=== PATIENT | female | born 1985 | race Caucasian/White ===

== ENCOUNTER 2024-09-09 18:23 | Emergency (ER) | payer OTHER, SELFPAY ==
--- OUTSIDE RECORDS SUMMARY | 2013-06-21 05:15 | XMS_ITS | Continuity of Care Document ---
Author Organization [facility] Address [address] [place] [address] Phone Care Team Providers Care Change House Attendant Name Role Phone Unavailable Unavailable Unavailable Advance Directives Directive Yes / No Effective Date File Name No Information Encounters Encounter Description Practice Location Reason(s) For Visit Diagnoses Date Provider Providers Copied on Encounter Pending Sale To [facility], [address], [place], [address], [place] tel:[phone] ALEXANDER BREVARD No Information 4 No Information Referring Provider: DANA Linares, [address] [facility] [place], [address]. tel:[phone] Family History Family Member Type Diagnosis Age At Onset No Information Payers Payer name Insurance type Covered constitution party ID Authoriza tifernando(s) [place] [employer] INDEMNITY [id number] Social History Type Description Quantity Date Captured Comments Sex Female Smoking Status No Information Chief Complaint And Reason For Visit No Information History Of Present Illness Encounter Date Complaint History Of Prese nt Illness No Information Instructions Date Instruction Additional Infor mation No Information Assessments Type Assessment Date No Information
--- OUTSIDE RECORDS SUMMARY | 2013-06-21 05:15 | XMS_ITS | Continuity of Care Document ---
Author Organization [facility] Address [address] [place] [address] Phone Care Team Providers Care Poultry Veterinarian Name Role Phone Unavailable Unavailable Unavailable Advance Directives Directive Yes / No Effective Date File Name No Information Encounters Encounter Description Practice Location Reason(s) For Visit Diagnoses Date Provider Providers Copied on Encounter [facility], [address], [place], [address], [place] tel:[phone] ALEXANDER BREVARD No Information 4 No Information Referring Provider: DANA Linares, [address] [facility] [place], [address]. tel:[phone] Family History Family Member Type Diagnosis Age At Onset No Information Payers Payer name Insurance type Covered constitution party ID Authoriza tifernando(s) [place] [employer] INDEMNITY 1478 [id number] Social History Type Description Quantity Date Captured Comments Sex Female Smoking Status No Information Chief Complaint And Reason For Visit No Information History Of Present Illness Encounter Date Complaint History Of Prese nt Illness No Information Instructions Date Instruction Additional Infor mation No Information Assessments Type Assessment Date No Information
[2024-09-09 18:46] VITALS: BP 147/92; PULSE 73; RESP 18; TEMP 36.9; O2SAT 98; BMI 28.7
--- NOTE | 2024-09-09 18:54 | ED.GENADULT ---
HPI - General Adult General Date Seen: 09/09/24 Chief complaint: Headache/Migraine Stated complaint: Migraine, nerve pain, possible shingles Time Seen by Provider: 09/09/24 18:50 History of Present Illness HPI narrative: 38 yo F with a history migraine headaches who presents to the ER today with concern for a painful burning rash affecting the right posterior thorax and back of her right shoulder blade that is been present initially for about a week. She 1st noticed a small spot there as a single spot last which she thought might have been a bug bite initially. Since then multiple other spots have spread and she is also feeling like she has got ?a flame? on her back. Along with that she has several as symptoms P she has for funny tingling burning nerve pain in both of her legs. No rashes there. She has also had headache that was present several days ago and then went away and then came back in. In particular the headache is affecting the left have her head. She says it feels like someone francisco a line down the center of her head and through the center of her nose and all the pain is on the left side of that. She has not had any fever or chills. Related Data Previous Rx's ?Medication ?Instructions ?Recorded valacyclovir 1 gram tablet 1,000 mg PO TID #21 tabs 09/09/24 Allergies Allergy/AdvReac Type Severity Reaction Status Date / Time Gadolinium-Containing Allergy Severe Anaphylaxis Verified 09/09/24 18:50 Contrast Medi nifedipine (From Procardia) Allergy Mild Hives Verified 09/09/24 18:50 PFSH PFSH Social History Non-prescribed substance use: denies use Exam Narrative: Exam Narrative: Constitutional: Appears well-developed and well-nourished. Alert. Conversant. Non toxic. HENT: Head: Atraumatic. No depressed skull fracture, Raccoon Eyes, Grove's sign, or hemotympanum. Face normal. TMs normal Nose: Nose normal. Mouth/Throat: Oral mucosa is clear and moist. no trismus. Pharynx normal. Tonsils symmetric. No tonsillar enlargement, erythema, or exudate. Eyes: Wearing sunglasses due to photophobia. Able to take them off for exam. Conjunctivae normal. EOM normal. Pupils equal, round, and reactive to light. No scleral icterus. Neck: Normal range of motion. Neck supple. No tracheal deviation present. Cardiovascular: Normal rate, regular rhythm. No gallop. No friction rub. No murmur heard. Symmetric radial artery pulses Pulmonary/Chest: Effort normal. No stridor. No respiratory distress. No wheezes. No rales. No rhonchi . No tenderness. Abdominal: Soft. No distension. No mass. No tenderness. No rebound. No guarding. Musculoskeletal: RUE: Normal range of motion. No tenderness. No deformity LUE: Normal range of motion. No tenderness. No deformity RLE: Normal range of motion. No edema. No tenderness. No deformity LLE: Normal range of motion. No edema. No tenderness. No deformity Mental status normal. Attention normal. Alert and oriented x3. GCS 15. Memory normal. Speech fluent. Cognition normal. Cranial Nerves intact II-XII except I did not formally test gag or visual acuity. EOMI. Palate elevates symmetrically and tongue protrudes in the midline. Strength: 5/5 trapezius on the right and left 5/5 deltoid on the right and left 5/5 biceps on the right and left 5/5 triceps on the right and left 5/5 air carrier maintenance inspector on the right and left 5/5 thumb opposition on the right and left 5/5 finger abduction on the right and left 5/5 hip flexors (L3) on the right and left 5/5 quadriceps (L4) on the right and left 5/5 tibialis anterior on the right and left 5/5 EHL (L5) on the right and left 5/5 gastrocnemius (S1) on the right and left 5/5 hamstring on the right and left Sensation intact to light touch in both upper extremities (C4-T1) Sensation intact to light touch in Both lower extremities (L4-S1). Finger to nose and coordination normal. Gait normal. Skin: She does have a rash on her right posterior shoulder roughly in the T1 dermatome. The rash consists of about a dozen her 2 dozen scattered vesicular lesions which have been de roofed and excoriated. Each are surrounded by a small rim of erythema. There is no confluent erythema. No underlying fluctuance. No pustules or purulent drainage. Otherwise, Skin is warm and dry. No rash noted. No pallor. Normal capillary refill. Psychiatric: Normal mood. Normal affect. Const: Vital Signs, click to edit/add: Vital Signs - 24 hr 09/09/24 18:46 09/09/24 21:20 09/09/24 21:30 Temperature 98.4 F Pulse Rate [Pulse Oximeter] 73 81 Respiratory Rate 18 16 Blood Pressure [Ri ght Upper Arm] 147/92 H 117/91 H Pulse Oximetry 98 98 98 Oxygen Delivery Me thod Room Air 09/09/24 22:36 Temperature 98.4 F Pulse Rate [Pulse Oximeter] 81 Respiratory Rate 16 Blood Pressure [Ri ght Upper Arm] 117/91 H Pulse Oximetry Oxygen Delivery Me thod Course Vital Signs Vital signs: Initial Vital Signs Temperature 98.4 F 09/09/24 18:46 Temperature Source Temporal Artery Scan 09/09/24 18:46 Pulse Rate 73 09/09/24 18:46 Pulse Rhythm Regular 09/09/24 18:46 Respiratory Rate 18 09/09/24 18:46 Blood Pressure 147/92 H 09/09/24 18:46 Blood Pressure Mean 110 H 09/09/24 18:46 Blood Pressure Position Sitting 09/09/24 18:46 Pulse Oximetry 98 09/09/24 18:46 Oxygen Delivery Method Room Air 09/09/24 18:46 Vital Signs Temperature 98.4 F 09/09/24 18:46 Pulse Rate 73 09/09/24 18:46 Respiratory Rate 18 09/09/24 18:46 Blood Pressure 147/92 H 09/09/24 18:46 Pulse Oximetry 98 09/09/24 18:46 Oxygen Delivery Method Room Air 09/09/24 18:46 Temperature 98.4 F 09/09/24 22:36 Pulse Rate 81 09/09/24 22:36 Respiratory Rate 16 09/09/24 22:36 Blood Pressure 117/91 H 09/09/24 22:36 Pulse Oximetry 98 09/09/24 21:30 Oxygen Delivery Method Room Air 09/09/24 18:46 Medications Administered Medications: Discontinued Medications Generic Name Dose Route Start Last Admin Trade Name Freq PRN Reason Stop Dose Admin Diphenhydramine HCl 12.5 mg 09/09/24 19:34 09/09/24 20:04 Diphenhydramine 50 Mg/Ml Inj IVP 09/09/24 19:35 12.5 mg ONCE ONE Administration Sodium Chloride 1,000 mls @ 1,000 mls/hr 09/09/24 19:45 09/09/24 20:43 0.9 % Sodium Chloride 1000 Ml IV 09/09/24 20:44 Infused .Q1H KEIRY Infusion Ketorolac Tromethamine 15 mg 09/09/24 19:34 09/09/24 20:04 Ketorolac 15 Mg/Ml Inj IVP 09/09/24 19:35 15 mg ONCE ONE Administration Metoclopramide HCl 10 mg 09/09/24 19:34 09/09/24 20:05 Metoclopramide Hcl 5 Mg/Ml Inj IVP 09/09/24 19:35 10 mg ONCE ONE Administration Valacyclovir HCl 1,000 mg 09/09/24 21:00 09/09/24 20:37 Valacyclovir Hcl 500 Mg Tablet PO 1,000 mg TID KEIRY Administration Medical Decision Making MDM Narrative Medical decision making narrative: This patient presents for evaluation of pain and rash on her right posterior shoulder in the right T1 dermatome This is consistent clinically with herpes zoster. Will start valacyclovir for this and pain medicine as noted above. No signs at this point of disseminated zoster nor V1/eye involvement. Patient is not immunocompromised and I see no signs of systemic illness that might have lead to this. I don't think lab work to look for things like HIV or leukemia is indicated. She is also having a headache which is typical for her previous migraine headaches that has been bothersome, likely triggered by the shingles. She is not having any rash on her head or any signs ocular shingles or facial rash. No associated fever or neck stiffness or pain to raise concern for meningitis or encephalitis. With stab lotion IV and treated her with migraine cocktail of with very good improvement in her headache. Is now almost completely resolved and she is requesting discharge home. First dose of fell psych liver administered here in the ER. Prescription for valacyclovir 1000 mg t.i.d. for 7 days sent to her pharmacy. See primary care doctor in follow up for recheck and refill of pain medicine if needed. Discharge Plan Discharge Clinical Impression: Shingles, Headache Patient Disposition: Home, Self-Care Condition: Stable Instructions: Shingles (ED), Acute Headache (DC) Additional Instructions: As we discussed, please come back to the ER right away if you have worsening headache, confusion, blurry vision, stiff neck, fever, or if you have spreading rash from her shingles, or if you have any other problems. Prescriptions: New valacyclovir 1 gram tablet 1,000 mg PO TID Qty: 21 0RF Follow Up/Referrals: Provider,Not a Local [Primary Care Provider, Family Practice] Stand Alone Forms: [facility] Info Instructions
[2024-09-09] MEDS: KETOROLAC 15 MG/ML inj IVP (20:04)
[2024-09-09] MEDS: diphenhydrAMINE 50 MG/ML inj 12.5 MG IVP (20:04)
[2024-09-09] MEDS: 0.9 % SODIUM CHLORIDE 1000 ml 1,000 ML IV (20:05)
[2024-09-09] MEDS: METOCLOPRAMIDE HCL 5 MG/ML INJ 10 MG IVP (20:05)
[2024-09-09] MEDS: VALACYCLOVIR HCL 500 MG TABLET 1000 MG PO (20:37)
[2024-09-09 21:20] VITALS: BP 117/91; PULSE 81; RESP 16; O2SAT 98
[2024-09-09 21:30] VITALS: O2SAT 98
[2024-09-09 22:36] VITALS: BP 117/91; PULSE 81; RESP 16; TEMP 36.9
== END 2024-09-09 22:38 | disposition home or self-care (01) ==
PROVIDERS: Emergency Provider Emergency Medicine
DX: B02.9 Zoster without complications (principal); R51.9 Headache, unspecified
CPT/HCPCS: 94761; 96374; 96375; 99283; 99284; A9270; J1200; J1885; J2765; J7030

== ENCOUNTER 2024-10-12 14:17 | Emergency (ER) | payer OTHER, SELFPAY ==
[2024-10-12 14:20] VITALS: BP 111/79; PULSE 85; RESP 18; TEMP 36.3; O2SAT 96; BMI 27.6
[2024-10-12 14:30] VITALS: BP 113/81; PULSE 79; RESP 16; O2SAT 97
[2024-10-12 15:00] VITALS: BP 107/82; PULSE 78; RESP 16; O2SAT 98
--- NOTE | 2024-10-12 15:13 | CRLHL7_ITS ---
For Patients: As a result of the Century Cures Act, medical imaging exams and procedure reports are released immediately into your electronic medical record. You may view this report before your referring provider. If you have questions, please contact your health care provider. Indication: RT ABD PAIN, FLANK- LOWER. HISTORY OF UTERINE FIBROID EMBOLIZATION, TUBAL LIGATION Technique: CT abdomen/pelvis with IV contrast utilizing 79 mL Isovue 370 Comparison: None Findings: Lower thorax: Unremarkable Abdomen/pelvis: The liver, gallbladder, and biliary system are unremarkable. The spleen, pancreas, and adrenal glands are unremarkable. The kidneys, ureters, and bladder are unremarkable. Retroflexed uterus with some regions of somewhat heterogeneous echogenicity, likely sequela of prior uterine fibroid embolization. Likely subserosal fibroid in the anterior lower uterine segment to the right of midline measuring approximately 2 centimeters in greatest dimension (series number 2, image 106; series number 5, image 82). The bilateral ovaries are within normal limits in appearance with likely simple left ovarian cyst versus dominant follicle measuring approximally 2.0 centimeters. No suspicious adnexal lesions. There is no evidence of bowel obstruction or inflammation. The appendix is normal. Scattered colonic diverticulosis without CT evidence of acute diverticulitis. No free air, free fluid, or abscess. No abdominopelvic lymphadenopathy. The vasculature is unremarkable. Impression: 1. No CT evidence of an acute process involving the abdomen or pelvis. 2. Incidental findings as detailed above. Please note that all CT scans at this facility use dose modulation, iterative reconstruction, and/or weight-based dosing when appropriate to reduce radiation dose to as low as reasonably achievable. Dictated by Jese Dawn MD @ 10/12/2024 3:52:31 PM (Electronically Signed)
--- NOTE | 2024-10-12 15:14 | ED.GENADULT ---
HPI - General Adult General Chief complaint: Flank Pain Stated complaint: Right side pain Time Seen by Provider: 10/12/24 14:30 History of Present Illness HPI narrative: This 38-year-old female comes in reporting right-sided abdominal pain that began yesterday. She states that it is a constant pain and seems to be worse with palpating in her right abdomen and right lower ribs. It is also worse after taking food. She did have some potato chips and her symptoms seem to worsen. She has had some associated nausea but no vomiting or fevers. She does not have any dysuria symptoms. Related Data Previous Rx's ?Medication ?Instructions ?Recorded hydrocodone 5 mg-acetaminophen 325 1 tab PO Q4-6H PRN pain #15 tabs 10/12/24 mg tablet ketorolac 10 mg tablet 10 mg PO TID 5 days #15 tabs 10/12/24 ondansetron HCl 4 mg tablet 4 mg PO Q6H #15 tabs 10/12/24 Allergies Allergy/AdvReac Type Severity Reaction Status Date / Time Gadolinium-Containing Allergy Severe Anaphylaxis Verified 10/12/24 15:34 Contrast Medi nifedipine (From Procardia) Allergy Mild Hives Verified 10/12/24 15:34 Review of Systems Status of ROS: Reports: 10 or more systems reviewed and unremarkable except as noted in History and below Narrative: Constitutional: No fevers, no weight gain or loss. Eyes: No discharge. No vision changes. HENT: No congestion, no sore throat, no ear pain. Cardiovascular: No chest pain, no palpitations. Respiratory: No shortness of breath, no wheezes, no cough. Gastrointestinal: No vomiting, no diarrhea. Right-sided abdominal pain as described above. Genitourinary: No dysuria, no hematuria. Musculoskeletal: Normal range of motion. Skin: No rashes, no pruritis. Neurological: No dizziness, weakness, sensory change, speech change. Endo/Heme/Allergies: No bruising or bleeding. No polydipsia. Pysch: no suicidality, no anxiety, no insomnia. All other systems reviewed and are negative. PFSH PFSH Social History Non-prescribed substance use: denies use Exam Narrative: Exam Narrative: Constitutional: Well-developed, well-nourished, no acute distress. HEENT: Normocephalic, atraumatic. Neck: Normal range of motion. Nontender. Supple. Heart: Regular. No murmurs. Normal rate. Intact distal pulses. Lungs: Clear to auscultation. No chest discomfort. No wheezes, rhonchi, or rales. Abdomen: Normal bowel sounds. Tenderness in the right abdomen radiating down into the lower right abdomen and also to the right flank region. Rebound tenderness is present. Genitalia: Deferred. Back: No midline tenderness. Normal range of motion. Extremities: Normal range of motion. No injury. Skin: Intact. No rash. Warm. No erythema or pallor. Neurologic: No altered sensation. No weakness. Alert and oriented. Psychiatric: No suicidality. No anxiety or depression. No insomnia. Nursing notes and vitals signs are reviewed. Const: Vital Signs, click to edit/add: Vital Signs - 24 hr 10/12/24 14:20 10/12/24 14:30 10/12/24 15:00 Temperature 97.4 F L Pulse Rate [Right Pulse Oximeter] 85 79 78 Respiratory Rate 18 16 16 Blood Pressure [Ri ght Upper Arm] 111/79 113/81 107/82 Pulse Oximetry 96 97 98 Oxygen Delivery Me thod Room Air Room Air 10/12/24 15:30 Temperature Pulse Rate [Right Pulse Oximeter] 69 Respiratory Rate 16 Blood Pressure [Ri ght Upper Arm] 117/76 Pulse Oximetry 98 Oxygen Delivery Me thod Course Vital Signs Vital signs: Initial Vital Signs Temperature 97.4 F L 10/12/24 14:20 Temperature Source Temporal Artery Scan 10/12/24 14:20 Pulse Rate 85 10/12/24 14:20 Pulse Rhythm Regular 10/12/24 14:20 Pulse Strength 3+ Normal 10/12/24 14:20 Respiratory Rate 18 10/12/24 14:20 Blood Pressure 111/79 10/12/24 14:20 Blood Pressure Mean 89 10/12/24 14:20 Blood Pressure Position Sitting 10/12/24 14:20 Pulse Oximetry 96 10/12/24 14:20 Oxygen Delivery Method Room Air 10/12/24 14:20 Vital Signs Temperature 97.4 F L 10/12/24 14:20 Pulse Rate 85 10/12/24 14:20 Respiratory Rate 18 10/12/24 14:20 Blood Pressure 111/79 10/12/24 14:20 Pulse Oximetry 96 10/12/24 14:20 Oxygen Delivery Method Room Air 10/12/24 14:20 Temperature 97.4 F L 10/12/24 14:20 Pulse Rate 69 10/12/24 15:30 Respiratory Rate 16 10/12/24 15:30 Blood Pressure 117/76 10/12/24 15:30 Pulse Oximetry 98 10/12/24 15:30 Oxygen Delivery Method Room Air 10/12/24 15:00 Medications Administered Medications: Discontinued Medications Generic Name Dose Route Start Last Admin Trade Name Gisele PRN Reason Stop Dose Admin Hydromorphone HCl 0.5 mg 10/12/24 15:13 10/12/24 15:19 Hydromorphone 0.5 Mg/0.5 Ml Inj IVP 10/12/24 15:14 0.5 mg ONCE ONE Administration Ondansetron HCl 4 mg 10/12/24 15:13 10/12/24 15:18 Ondansetron 2 Mg/Ml Inj IVP 10/12/24 15:14 4 mg ONCE ONE Administration Medical Decision Making [facility] Narrative Medical decision making narrative: This patient comes in with right-sided abdominal pain that seems to be worse when taking food. I did do bedside ultrasound and very quickly saw a rather large stone in the gallbladder that does not appear to be obstructive. Her common bile duct also appeared to be normal. I did then order a CT scan with IV contrast and this returns with no acute findings. The gallstone seen on ultrasound is not radiopaque so of her gallbladder appeared normal and there were no other findings on the CT scan that explain the patient's pain. Lab results show normal findings. In particular there is no sign of infection or obstruction with regard to her gallbladder. The patient did receive an IV dose of Dilaudid 0.5 mg and she is feeling significantly better. She is okay to be discharged home. I advised her to follow-up with surgery clinic for ongoing management of this condition. She did receive prescriptions for Toradol, Putnam, and Zofran. Lab Data Labs: Lab Results 10/12/24 Range/Units 14:40 WBC 9.89 (4.50-11.00) K/uL RBC 4.29 (4.00-5.20) m/uL Hgb 13.8 (12.0-16.0) gm/dL Hct 41.2 (33.0-51.0) % MCV 96 (80-100) fL MCH 32 (26-34) pg MCHC 34 (32-36) gm/dL RDW Coeff of Osvaldo 12.6 (11.5-15.5) % Plt Count 248 (140-440) K/uL Neut % (Auto) 58.7 (42.0-72.0) % Lymph % (Auto) 33.9 (20-44) % [place] % (Auto) 5.8 (0.0-11.0) % Eos % (Auto) 1.1 (0.0-7.0) % Baso % (Auto) 0.4 (0.0-3.0) % Neut # (Auto) 5.81 (1.7-7.0) K/uL Lymph # (Auto) 3.35 H (0.90-2.90) K/uL [place] # (Auto) 0.60 (0.00-0.90) K/UL Eos # (Auto) 0.11 (0.00-0.50) K/uL Baso # (Auto) 0.04 (0.00-0.30) K/uL Abs Immat Gran (auto) 0.01 (0.00-0.30) K/uL Imm/Tot Granulo (auto) 0.1 % Sodium 139 (135-149) mmol/L Potassium 3.6 (3.6-5.1) mmol/L Chloride 103 (96-114) mmol/L Carbon Dioxide 27 (20-32) mmol/L Anion Gap 9 (7-15) mEq/L BUN 9 (5-24) mg/dL Creatinine 0.6 (0.5-1.5) mg/dL Estimated Creat Clear 111.93 Estimated GFR 119 ml/min Glucose 87 (60-115) mg/dL Calcium 9.4 (8.4-10.6) mg/dL Total Bilirubin 0.5 (0.1-1.5) mg/dL Direct Bilirubin 0.0 (0.0-0.5) mg/dL AST 28 (12-35) U/L ALT 20 (4-35) U/L Alkaline Phosphatase 71 (40-150) U/L Total Protein 7.9 (6.0-8.3) g/dL Albumin 4.7 (3.3-5.0) g/dL Lipase 168 (23-300) U/L Imaging Data CT scan - abdomen: Radiologist's impression: No CT evidence of an acute process involving the abdomen or pelvis. Discharge Plan Discharge Clinical Impression: Cholelithiasis Patient Disposition: Home w/ Parent or Adult Condition: Stable Additional Instructions: Take medication as needed and indicated. Increase diet as tolerated. Follow-up with surgery clinic for ongoing management. Call [phone] for appointment. Return if worsening. Prescriptions: New hydrocodone-acetaminophen 5-325 mg tablet 1 tab PO Q4-6H PRN (Reason: pain) Qty: 15 0RF ondansetron HCl 4 mg tablet 4 mg PO Q6H Qty: 15 0RF ketorolac 10 mg tablet 10 mg PO TID 5 Days Qty: 15 0RF Follow Up/Referrals: Provider,Not a Local [Primary Care Provider, Family Practice] Stand Alone Forms: [facility] Info Instructions Procedures Ultrasound Biliary exam #1: Anatomical areas examined: gallbladder, long and short axis and common bile duct Indications: RUQ/epigastric pain Exam type: limited abdominal ultrasound; RUQ Exam findings: stones visualized Impression: cholelithiasis Description/Findings: Solitary stone in the gallbladder that does not appear to be obstructive.
[2024-10-12] MEDS: ONDANSETRON 2 MG/ML inj 4 MG IVP (15:18)
[2024-10-12 15:30] VITALS: BP 117/76; PULSE 69; RESP 16; O2SAT 98
[2024-10-12 15:38] LABS: Hematocrit 41.2 % (33.0-51.0); Hemoglobin* 13.8 gm/dL (12.0-16.0); Immature Granulocytes Abs Auto 0.01 K/uL (0.00-0.30); Immature Granulocytes Pct Auto 0.1 %; Lymphocytes Absolute Auto 3.35 K/uL (0.90-2.90); Mean Corpuscular HGB Conc 34 gm/dL (32-36); Mean Corpuscular Hemoglobin 32 pg (26-34); Mean Corpuscular Volume 96 fL (80-100); RDW Coefficient of Variation % 12.6 % (11.5-15.5); Red Blood Count 4.29 m/uL (4.00-5.20); White Blood Count* 9.89 K/uL (4.50-11.00)
[2024-10-12 15:46] LABS: Slide Review Reflex No
[2024-10-12 16:00] LABS: Albumin* 4.7 g/dL (3.3-5.0); Chloride* 103 mmol/L (96-114); Potassium* 3.6 mmol/L (3.6-5.1); Sodium* 139 mmol/L (135-149)
[2024-10-12 16:02] LABS: Blood Urea Nitrogen* 9 mg/dL (5-24); Creatinine* 0.6 mg/dL (0.5-1.5); Est. Creatinine Clearance* 111.93; Estimated Glomerular Filt Rate 119 ml/min
[2024-10-12 16:03] LABS: Alanine Aminotransferase* 20 U/L (4-35); Alkaline Phosphatase* 71 U/L (40-150); Anion Gap 9 mEq/L (7-15); Aspartate Amino Transferase* 28 U/L (12-35); Bilirubin Direct* 0.0 mg/dL (0.0-0.5); Bilirubin Total* 0.5 mg/dL (0.1-1.5); Calcium* 9.4 mg/dL (8.4-10.6); Carbon Dioxide* 27 mmol/L (20-32); Glucose* 87 mg/dL (60-115); Total Protein* 7.9 g/dL (6.0-8.3)
[2024-10-12 16:59] VITALS: BP 112/75; PULSE 62; RESP 16
== END 2024-10-12 17:00 | disposition home or self-care (01) ==
PROVIDERS: Emergency Provider Emergency Medicine Emergency Medical Services
DX: K80.20 Calculus of gallbladder without cholecystitis without obstruction (principal)
CPT/HCPCS: 36415; 74177; 76705; 80048; 80076; 83690; 85025; 96374; 96375; 99284; 99285; J1171; J2405; Q9967